=== PATIENT | female | born 1975 | race Caucasian/White ===

== ENCOUNTER → 2023-10-02 | Day surgery (SDC) | payer MEDICAID ==
[~2023-10-02] VITALS: Ht 157.5 cm; Wt 73.5 kg
[~2023-10-02] MED LIST: BUPIVACAINE HCL/PF 0.5% (5MG/ML) 10ML ONE; CEFAZOLIN SODIUM 1000MG/VIAL ONE; DEXAMETHASONE 4MG/ML 1ML VIAL ONE; FENTANYL CITRATE/PF 50MCG/ML 2ML VIAL IV PRN; FENTANYL CITRATE/PF 50MCG/ML 2ML VIAL ONE; GLYCOPYRROLATE 0.2 MG/ML 2ML VIAL ONE; IBUP-2029 PO; KETOROLAC 30MG/ML VIAL ONE; LATA2.5D14 EACHEYE; MAGN250T29 PO; MEPERIDINE HCL/PF 25MG/ML CPJ IV PRN; MIDAZOLAM HCL 2 MG/2 ML VIAL ONE; OMEG100017 PO; ONDANSETRON HCL 4MG/2ML INJ IV PRN; ONDANSETRON HCL 4MG/2ML INJ ONE; PROP1DRO4 EACHEYE; PROPOFOL 200MG/20ML VIAL IV ONE; ROCURONIUM BROMIDE 10MG/ML VIAL 5ML IV ONE; SKIN ADHESIVE 0.7 GM EA TOP ONE; TOPUD PO
[2023-10-02 07:50] LABS: UCG SCREEN NEGATIVE
[2023-10-02] MEDS: LACTATED RINGERS 1,000 ML IV SCH (08:16)
[2023-10-02] MEDS: HYDROMORPHONE HCL/PF 2MG/ML CPJ IV PRN (12:20)
[2023-10-02 13:42] VITALS: BP 146/80; PULSE 74; RESP 16
[2023-10-02] MEDS: ACETAMINOPHEN WITH CODEINE 300/30MG TABLET PO NR (13:42)
== END | disposition home or self-care (01) ==
LOC: OR 07:09 → EDBD 07:09
PROVIDERS: ATTEND Surgery
DX: K80.10 Calculus of gallbladder with chronic cholecystitis without obstruction (principal); G43.909 Migraine, unspecified, not intractable, without status migrainosus; Z79.899 Other long term (current) drug therapy; Z98.890 Other specified postprocedural states; Z88.8 Allergy status to other drugs, medicaments and biological substances
CPT/HCPCS: 47562; 81025; 88304; J3010; J3490 ×3; J0690; J1100; J1885; J2250; J2405; J2704; J1170; J7030